=== PATIENT | female | born 1980 ===

== ENCOUNTER → 2017-12-14 15:20 | Outpatient (CLI) | payer OTHER, SELFPAY | DX: Z23 Encounter for immunization (principal) | CPT/HCPCS: 90471; 90686 ==

== ENCOUNTER → 2022-02-06 12:22 | Outpatient (CLI) | payer SELFPAY | PROVIDERS: Referring Provider Internal Medicine; Visit Provider Internal Medicine | DX: Z23 Encounter for immunization (principal) | CPT/HCPCS: 90471; 90686 ==

== ENCOUNTER → 2022-12-01 14:50 | Outpatient (CLI) | payer OTHER, SELFPAY | PROVIDERS: Referring Provider Family Medicine; Visit Provider Family Medicine | DX: Z23 Encounter for immunization (principal) | CPT/HCPCS: 90471; 90686 ==

== ENCOUNTER → 2024-01-05 | Outpatient (CLI) | payer OTHER, SELFPAY | PROVIDERS: Referring Provider Internal Medicine; Visit Provider Internal Medicine | DX: Z23 Encounter for immunization (principal) | CPT/HCPCS: 90471; 90656 ==